=== PATIENT | male | born 1965 | race Caucasian/White ===

== ENCOUNTER → 2023-01-20 09:47 | Outpatient (CLI) | payer OTHER, SELFPAY ==
[2023-01-20 10:11] LABS: Add Manual Diff / Slide Review NO; Basophils Absolute Auto 0 /uL (0-100); Basophils Percent Auto 0.4 % (0-2); Eosinophils Absolute Auto 200 /uL (0-450); Hematocrit 42.7 % (41-53); Hemoglobin 14.7 g/dL (13.5-17.5); Lymphocytes Absolute Auto 1000 /uL (1100-4500); Lymphocytes Percent Auto 15.9 % (25-40); Mean Corpuscular HGB Conc 34.4 % (30-36); Mean Corpuscular Hemoglobin 32.9 PG (26-34); Mean Corpuscular Volume 95.6 fL (80-100); Monocytes Absolute Auto 800 /uL (0-900); Monocytes Percent Auto 12.5 % (3-14); Neutrophils Absolute Auto 4200 /uL (1500-7000); Neutrophils Percent Auto 68.2 % (50-75); Platelet Count 179 X10^3/uL (150-400); Red Blood Cell Count 4.46 X10^6/uL (4.5-5.9); Red Cell Distribution Width 12.7 % (11.6-14.8); White Blood Cell Count 6.1 X10^3/uL (4.5-11.0)
[2023-01-20 10:34] LABS: HEMOLYSIS < 15 (0-50)
[2023-01-20 10:43] LABS: Alanine Aminotransferase 139 IU/L (<50); Albumin 4.2 g/dL (3.5-5.0); Albumin Globulin Ratio 1.4 (1.0-2.8); Alkaline Phosphatase 70 U/L (38-126); Aspartate Aminotransferase 136 IU/L (17-59); BUN Creatinine Ratio 22.6 (6-22); Bilirubin Total 1.1 mg/dL (0.2-1.3); Blood Urea Nitrogen 14 mg/dL (9-20); Calcium 8.8 mg/dL (8.4-10.2); Carbon Dioxide 25 mmol/L (22-32); Chloride 100 mmol/L (98-107); Cholesterol 237 mg/dL (140-199); Estimated Glomerular Filt Rate > 60 mL/min (>60); Glucose 125 mg/dL (70-100); HDL Cholesterol 39 mg/dL (40-60); LDL Cholesterol Calculated 174 mg/dL (<100); Potassium 4.4 mmol/L (3.4-5.1); Sodium 134 mmol/L (137-145); Total Protein 7.2 g/dL (6.3-8.2); Triglycerides 122 mg/dL (35-150)
[2023-01-20 11:26] LABS: Prostate Specific Antigen 3.51 ng/mL (0.10-4.00)
== END ==
PROVIDERS: PCP Family Medicine; Referring Provider Family Medicine; Visit Provider Family Medicine
DX: Z00.00 Encounter for general adult medical examination without abnormal findings (principal); N13.8 Other obstructive and reflux uropathy; N40.1 Benign prostatic hyperplasia with lower urinary tract symptoms
CPT/HCPCS: 36415; 80053; 80061; 84153; 85025

== ENCOUNTER 2023-12-27 12:24 | Day surgery (SDC) | payer OTHER, SELFPAY ==
--- NOTE | 2023-12-27 | PATH_ITS ---
[facility] Accession Number: [id number] No. of containers..01 Tissue . 01 Material submitted: . colon - TRANSVERSE POLYP . 01 Diagnosis: COLON, TRANSVERSE POLYP, BIOPSY: Tubular adenoma. MRV 12/30/2023 1255 Local . 01 Electronically signed: . Lucie Schmitz MD, Pathologist NPI- [id number] . 01 Gross description: . Received in formalin with two patient identifiers and transverse polyp, are multiple ballard soft tissue fragments aggregating to 0.7 x 0.4 x 0.2 cm. Filtered and submitted in A1. ([id number]) /MRV 12/29/2023 1727 Local . 01 Pathologist provided ICD-10: D12.6 . 01 CPT . 068107 Specimen Comment: A courtesy copy of this report has been sent to [phone] Performed at: [address] [facility] [address], [place], [place] [id number] MD Minh Art MD Phone: [phone]
[2023-12-27 12:50] VITALS: BP 171/101; PULSE 83; RESP 18; TEMP 36.1; O2SAT 97
[2023-12-27] MEDS: LACTATED RINGERS 1,000 ML 42 ML IV (12:54)
--- NOTE | 2023-12-27 13:12 | P.HP_ITS ---
History of Present Illness History of Present Illness Date Patient Seen: 12/27/23 Time Patient Seen: 13:13 Chief complaint: SDC Narrative: 58-year-old man personal history of colonic polyps here for screening colonoscopy. His mother had colon cancer. No abdominal concerns today. [facility] Medical History Hyperglycemia Elevated LFTs Allergies Family history of lung cancer Family history of colon cancer in mother Colon polyps History of hyperlipidemia Borderline hypertension Encounter for well adult exam with abnormal findings Surgical History Anesthesia History of back surgery (~03/2019) Family History Father Cancer Mother Living in assisted living Cancer Diabetes mellitus Hypertension Grandfather Cancer Grandmother Cancer Social History Smoking Status: Never smoker alcohol intake: current Meds Home Medications and Allergies Home Medications Medication Instructions Recorded Confirmed Type loratadine [Claritin] PO 01/07/23 01/07/23 History Allergies Allergy/AdvReac Type Severity Reaction Status Date / Time No Known Drug Allergies Allergy Unverified 01/07/23 14:14 Exam Vital Signs (past 8 hours): - 12/27/23 12:50 Temperature 96.9 F L Pulse Rate 83 Respiratory Rate 18 Blood Pressure 171/101 H Pulse Oximetry 97 Oxygen Delivery Method Room Air Oxygen Delivery Method Room Air Narrative Exam Narrative: General adult man alert oriented no acute distress Chest nonlabored respiration Extremities warm well perfused Assessment & Plan Assessment & Plan narrative: The patient requires colorectal screening and colonoscopy is recommended. Technical details were discussed. Risks, benefits, alternatives explained. Risks including but not limited to myocardial infarction, aspiration, bleeding, pain, missed lesion, incomplete examination, need for further radiographic studies, intestinal injury, and need for major abdominal surgery were discussed. All questions were answered to their satisfaction, and they are in agreement with this plan. Time-Based Coding :: [TOTAL MINUTES] spent with patient and on the chart (including review of chart, obtaining history, exam, reviewing outside data, placing orders, documenting exam and treatment plan, and counseling patient) on [DATE].
--- NOTE | 2023-12-27 13:39 | P.OP.COLON_ITS ---
Operative Date/Time/Diagnoses Date of procedure: 12/27/23 Time of procedure: 13:39 Pre-op diagnosis: Family history of colon cancer Personal history of colonic polyps Post-op diagnosis: other (Colonic polyp x1) Procedure & Clinicians Study performed: Screening colonoscopy Same procedure as scheduled: Yes Indications: Family history of colon cancer Personal history of colonic polyps Surgeon: Pb Yanes Procedure Notes Procedure in detail: The history and physical was performed/updated and the patient is ASA class is 2. The procedure was discussed in detail with the patient. Potential risks complications including infection, bleeding, missed diagnosis, perforation, need for surgery, and were explained. Their questions were answered and informed consent was obtained. Patient was brought to the procedure room and placed standard monitoring equipment. The patient's vital signs were monitored continuously throughout the entire procedure. Prior to starting time-out was performed. The patient was placed in the left lateral recumbent position. Procedural sedation was administered by anesthesia. Examination began with a thorough inspection of the perianal area there was no evidence of fissures, fistulae, external hemorrhoids or cutaneous malignancy. The colonoscopy scope was then placed into the anal canal and was advanced to the cecum, which was identified by the ileocecal valve, the appendiceal orifice and the confluence of the taenia. The scope was then slowly withdrawn examining colon thoroughly in all directions, irrigating it of any residual stool. The scope was retroflexed within the rectum The patient tolerated the procedure well. They will be discharged once criteria are met. The prep was of good/excellent quality. The withdrawl time was 7 minutes. FINDINGS * Transverse colon-5 mm polyp removed with biopsy forceps * Diverticulosis mild of descending colon. Specimen(s): other (Transverse colon polyp) Impression: Colonic polyp x1 Post-procedure Recommendations: High fiber diet Plan for aftercare: Follow-up is dependent on pathology findings likely 5 years. Disposition: same day surgery
[2023-12-27 13:41] VITALS: BP 127/88; PULSE 79; RESP 12; TEMP 36.3; O2SAT 96
[2023-12-27 13:47] VITALS: BP 136/93; PULSE 81; RESP 17; TEMP 36.3; O2SAT 97
[2023-12-27 13:55] VITALS: BP 130/89; PULSE 75; RESP 15; TEMP 36.2; O2SAT 98
== END 2023-12-27 14:03 | disposition home or self-care (01) ==
PROVIDERS: PCP Family Medicine; Referring Provider Surgery; Visit Provider Surgery
PROC: 0DJD8ZZ Inspection of Lower Intestinal Tract, Via Natural or Artificial Opening Endoscopic (ICD-10-PCS; CPT 45378; principal; 2023-12-27 13:15)
DX: Z12.11 Encounter for screening for malignant neoplasm of colon (principal); Z80.0 Family history of malignant neoplasm of digestive organs; Z86.010 Personal history of colon polyps; K57.30 Diverticulosis of large intestine without perforation or abscess without bleeding; D12.3 Benign neoplasm of transverse colon
CPT/HCPCS: 45380; J2704